=== PATIENT | female | born 1940 | race Caucasian/White ===

== ENCOUNTER 2020-04-15 07:25 | Outpatient (CLI) | payer MEDICARE, SELFPAY ==
[2020-04-15 08:27] LABS: Blood Urea Nitrogen 18 mg/dL (7-17); Calcium 8.5 mg/dL (8.4-10.2); Carbon Dioxide 29 mmol/L (22-30); Chloride 106 mmol/L (98-107); Cholesterol 162 mg/dL (0-200); Estimated Glomerular Filt Rate > 60; Glucose 96 mg/dL (65-105); HDL Direct 63 mg/dL; Potassium 4.2 mmol/L (3.4-5.0); Sodium 139 mmol/L (137-145); Triglycerides 91 mg/dL (<150)
[2020-04-15 08:36] LABS: Hemoglobin A1C 5.7 % (<5.7)
[2020-04-15 08:38] LABS: LDL Cholesterol Direct 66 mg/dL
== END 2020-04-15 07:26 | disposition home or self-care (01) ==
LOC: ANHLAB 07:29
PROVIDERS: PCP Internal Medicine; Visit Provider Internal Medicine
DX: R73.03 Prediabetes (principal); Z79.899 Other long term (current) drug therapy
CPT/HCPCS: 36415; 80048; 80061; 83036; 84443

== ENCOUNTER 2020-04-23 07:22 | Outpatient (CLI) | payer MEDICARE, SELFPAY ==
[2020-04-23 08:44] LABS: Free T4 Free Thyroxine 0.94 ng/mL (0.78-2.19)
== END 2020-04-23 07:23 | disposition home or self-care (01) ==
PROVIDERS: PCP Internal Medicine; Visit Provider Internal Medicine
DX: R94.6 Abnormal results of thyroid function studies (principal)
CPT/HCPCS: 36415; 84439

== ENCOUNTER 2020-06-01 07:50 | Outpatient (CLI) | payer MEDICARE, SELFPAY ==
[2020-06-01 09:22] LABS: Thyroid Stimulating Hormone 0.309 uIU/mL (0.465-4.680)
== END 2020-06-01 07:51 | disposition home or self-care (01) ==
PROVIDERS: PCP Internal Medicine; Visit Provider Internal Medicine
DX: E03.9 Hypothyroidism, unspecified (principal)
CPT/HCPCS: 36415; 84439; 84443

== ENCOUNTER 2020-12-22 07:30 | Outpatient (CLI) | payer MEDICARE, SELFPAY ==
[2020-12-22 09:00] LABS: Free T4 Free Thyroxine 1.41 ng/mL (0.78-2.19)
[2020-12-22 09:12] LABS: Thyroid Stimulating Hormone 0.475 uIU/mL (0.465-4.680)
== END 2020-12-22 07:31 | disposition home or self-care (01) ==
PROVIDERS: PCP Internal Medicine; Visit Provider Internal Medicine
DX: E03.9 Hypothyroidism, unspecified (principal)
CPT/HCPCS: 36415; 84439; 84443

== ENCOUNTER 2021-01-13 09:33 | Outpatient (CLI) | payer MEDICARE, SELFPAY | END 2021-01-13 09:34 | disposition home or self-care (01) | PROVIDERS: PCP Internal Medicine; Visit Provider Internal Medicine | DX: R19.7 Diarrhea, unspecified (principal) | CPT/HCPCS: 87045; 87046; 87177; 87209; 87324; 87427; 89055 ==

== ENCOUNTER 2021-03-16 07:56 | Outpatient (CLI) | payer MEDICARE, SELFPAY ==
--- NOTE | ~2021-03-16 | CT_ITS ---
EXAMINATION: CT abdomen pelvis w con DATE: 03/16/2021 08:34 INDICATION: Change in bowel habits. TECHNIQUE: Computed tomography (CT) of the abdomen and pelvis was performed with 100 mL Omnipaque 350 intravenous contrast. Automated exposure control and iterative reconstruction technique were employe d. The dose-length product was 381.37 mGy-cm. COMPARISON: CT abdomen and pelvis 05/13/2014 FINDINGS: The visualized portions of the lung bases demonstrate mild atelectasis. No pleural effusion . The heart size is normal. No pericardial effusion. There is a right posteromedial diaphragmatic her ed containing fat. The liver, gallbladder, spleen, pancreas, and adrenal glands are normal. There ar e cysts in the kidneys measuring up to 7 mm on the left. There are no dilated loops of bowel. The krish endix is not visualized. There are no pathologically enlarged lymph nodes. There is no free intraperi toneal fluid. There is lumbar dextroscoliosis and severe spondylosis. Again seen are multiple hemangi omas in the spine. IMPRESSION: 1. No etiology for the patient's symptoms. Reviewed, dictated and finalized at location A.
[2021-03-16 08:29] LABS: Estimated Glomerular Filt Rate > 60
== END 2021-03-16 07:57 | disposition home or self-care (01) ==
PROVIDERS: PCP Internal Medicine; Visit Provider Internal Medicine Gastroenterology
DX: R19.4 Change in bowel habit (principal); R19.7 Diarrhea, unspecified
CPT/HCPCS: 74177; Q9967

== ENCOUNTER 2021-04-27 01:30 | Day surgery (SDC) | payer MEDICARE, SELFPAY ==
[2021-04-09 12:19] VITALS: BMI 23.4
[2021-04-27 09:14] VITALS: BP 157/82; PULSE 84; RESP 16; TEMP 36.2; O2SAT 100; BMI 22.7
[2021-04-27] MEDS: LACTATED RINGERS 1,000 ML 150 ML IV CONT (09:24)
--- NOTE | 2021-04-27 09:34 | WPDGICN ---
Assessment and Plan Assessment and plan (1) Change in bowel habit: Code(s): R19.4 - Change in bowel habit Status: Acute Assessment and Plan: Patient with recent diarrhea stools somewhat suspicious for irritable bowel syndrome. This been a change in her bowel habits colonoscopy is recommended. Patient is quite concerned about colon cancer given her prior history of colon polyps. Further recommendations will be given after endoscopy. currently advised fiber supplementation on a daily basis. (2) History of colon polyps: Code(s): Z86.010 - Personal history of colonic polyps Status: Acute Assessment and Plan: Patient is a prior history of colon polyps. For this reason surveillance colonoscopy is recommended every 3-5 years. Further recommendations will be given after current endoscopy. (3) Anxiety with depression: Code(s): F41.8 - Other specified anxiety disorders Status: Acute GI Consult Note Consult date/time: 04/27/21 09:34 HPI: Amanda Darling is a 80 year old female Presents for colonoscopy. Patient has had recent diarrhea. Loose stools. Associated with stress and anxiety. Recently saw Dr. Eddi kaur in the office. A CT scan was performed found to be unremarkable follow-up colonoscopy was advised. Patient denies any weight loss. She has had no bleeding. Her past medical is significant for colon polyps. Most recent colonoscopy was 3 years ago. Family history noncontributory. Patient reports over recent weeks diarrhea is becoming more formed she has less frequent stools and is essentially returned to normal baseline. Fiber supplements have been given with inconsistent results in the past. Review of Systems Review of Systems: All systems reviewed & are unremarkable except as noted in HPI and below PMFSH Past Medical History Medical History (Updated 04/05/21 @ 13:50 by Sidney Shannon MD) Anxiety with depression BMI 25.0-25.9,adult Cough Encounter for Medicare annual wellness exam Encounter for routine adult health examination without abnormal findings Hearing loss Hypothyroidism (acquired) On group home drug therapy Overactive bladder Pre-diabetes Right carotid bruit URI (upper respiratory infection) UTI (urinary tract infection) Surgical History Surgical History (Updated 04/26/21 @ 14:22 by Myles John DO) History of appendectomy History of hysterectomy History of tubal ligation Family History Family History Father Family history of lung cancer Social History Social History Smoking packs per day: 1 Smoking cigarettes per day: 20.0 Years smoked: 20 Smoking pack-years: 20.00 Smoking status: Former smoker Tobacco type: cigarettes Second hand tobacco smoke exposure: No Alcohol intake: current Drinks per week: 3 Living arrangements: alone Spiritual care concerns: No Meds Home Medications and Allergies Home Medications Medication Instructions Recorded Confirmed Type vit C 250 mg-vit E 90 mg-zinc 40 1 tablet PO BID #60 cap 04/28/20 04/27/21 Rx mg-copper 1 [id number] capsule calcium polycarbophil [FiberCon] 2,500 mg PO DAILY 04/09/21 04/27/21 History levothyroxine 100 mcg PO DAILY 04/09/21 04/27/21 History oxybutynin chloride 5 mg PO BID 04/09/21 04/27/21 History paroxetine HCl 30 mg tablet See Rx Instructions .ROUTE 04/27/21 04/27/21 Rx .COMPLEX #90 tablet raloxifene 60 mg tablet See Rx Instructions .ROUTE 04/27/21 04/27/21 Rx .COMPLEX #90 tablet Allergies Allergy/AdvReac Type Severity Reaction Status Date / Time No Known Allergies Allergy Unknown Verified 04/27/21 09:13 Vital Signs Vital Signs - 24 hr 04/27/21 09:14 Temperature 97.2 F L Pulse Rate 84 Respiratory Rate 16 Blood Pressure 157/82 H Pulse Oximetry 100 Exam Narrative: Exam Maikol
--- NOTE | 2021-04-27 10:02 | P.PNAN_ITS ---
Anes - Initial Pre Proc Eval Procedure: Operation Date: 04/27/21 10:30 Proposed Procedures p Colonoscopy - Sidney Shannon MD Date/Time: 04/27/21 10:02 Surgeon: Sidney Shannon MD Pre Op Diagnosis: diarrhea, hx of colon polyps Patient Data Age: 80 Gender: F Height: 1.6 m Weight: 58.2 kg Last Vital Signs Temp 36.2 C L 04/27/21 09:14 Pulse 84 04/27/21 09:14 Resp 16 04/27/21 09:14 BP 157/82 H 04/27/21 09:14 Pulse Ox 100 04/27/21 09:14 Allergies Allergy/AdvReac Type Severity Reaction Status Date / Time No Known Allergies Allergy Unknown Verified 04/27/21 09:13 Home Medications Medication Instructions Recorded Confirmed Type vit C 250 mg-vit E 90 mg-zinc 40 1 tablet PO BID #60 cap 04/28/20 04/27/21 Rx mg-copper 1 [id number] capsule calcium polycarbophil [FiberCon] 2,500 mg PO DAILY 04/09/21 04/27/21 History levothyroxine 100 mcg PO DAILY 04/09/21 04/27/21 History oxybutynin chloride 5 mg PO BID 04/09/21 04/27/21 History paroxetine HCl 30 mg tablet See Rx Instructions .ROUTE 04/27/21 04/27/21 Rx .COMPLEX #90 tablet raloxifene 60 mg tablet See Rx Instructions .ROUTE 04/27/21 04/27/21 Rx .COMPLEX #90 tablet Patient hx anesthesia problems: none Family hx anesthesia problems: none PMFSH Past Medical History Medical History (Updated 04/05/21 @ 13:50 by Sidney Shannon MD) Anxiety with depression BMI 25.0-25.9,adult Cough Encounter for Medicare annual wellness exam Encounter for routine adult health examination without abnormal findings Hearing loss Hypothyroidism (acquired) On [place] agent drug therapy Overactive bladder Pre-diabetes Right carotid bruit URI (upper respiratory infection) UTI (urinary tract infection) Surgical History Surgical History (Updated 04/26/21 @ 14:22 by Myles John DO) History of appendectomy History of hysterectomy History of tubal ligation Family History Family History Father Family history of lung cancer Social History Social History (Updated 04/27/21 @ 10:03 by Myles John DO) Smoking packs per day: 1 Smoking cigarettes per day: 20.0 Years smoked: 40 Smoking pack-years: 40.00 Smoking status: Former smoker Tobacco type: cigarettes Second hand tobacco smoke exposure: No Smoking end date: 10/16/99 Alcohol intake: current Alcohol use details: 2 drinks/day most days Living arrangements: alone Spiritual care concerns: No Anes - Eval Final PreProcedure Day of Procedure 04/27/21 10:02 Patient weight: normal Heart: regular rate and rhythm Lungs: clear to auscultation and normal air movement Airway: Mallampati scale class II Neurological: alert and oriented Last oral intake: >/= 8 hours ASA classification: III Emergent: no Anesthetic plan: proceed Anesthesia type and monitoring: general GIVS and standard monitoring Informed Consent: The patient's anesthetic plan and its attendant risks and benefits were discussed with the patient/family/POA. Questions were solicited and answers provided to the satisfaction of the patient/family/POA.
[2021-04-27 11:16] VITALS: BP 134/74; PULSE 66; RESP 17; O2SAT 99
[2021-04-27 11:26] VITALS: BP 146/78; PULSE 59; RESP 16; O2SAT 100
[2021-04-27 11:36] VITALS: BP 158/80; PULSE 63; RESP 20; O2SAT 99
== END 2021-04-27 11:42 | disposition home or self-care (01) ==
PROVIDERS: PCP Internal Medicine; Visit Provider Internal Medicine Gastroenterology
PROC: 0DJD8ZZ Inspection of Lower Intestinal Tract, Via Natural or Artificial Opening Endoscopic (ICD-10-PCS; CPT 45330; principal; 2021-04-27 10:30)
DX: Z12.11 Encounter for screening for malignant neoplasm of colon (principal); K63.5 Polyp of colon; R19.7 Diarrhea, unspecified; E03.9 Hypothyroidism, unspecified; F41.8 Other specified anxiety disorders; N32.81 Overactive bladder; R73.03 Prediabetes; Z87.891 Personal history of nicotine dependence; R09.89 Other specified symptoms and signs involving the circulatory and respiratory systems
CPT/HCPCS: 45385; 88305; J2704; J7120

== ENCOUNTER 2021-05-12 08:10 | Outpatient (CLI) | payer MEDICARE, SELFPAY ==
--- NOTE | ~2021-05-12 | XR_ITS ---
BARIUM ENEMA-AIR CONTRAST INDICATION: Gastroenteritis. Colitis. TECHNIQUE: Examination of the colon utilizing air-contrast barium enema technique. COMPARISON: CT dated 03/16/2021 FINDINGS: The entire colon was filled, distending normally. Colon is mildly redundant. No extrinsic m ass effect is noted. The haustral pattern appears normal. There is no evidence of polyp, stricture, extravasation, obstruction or persistent mucosal abnormality. There are a few scattered colonic dive rticula. There is dextroscoliosis with moderate lumbar spondylosis. IMPRESSION: 1: Colonic diverticulosis. Reviewed, dictated and finalized at location A. IMPRESSION: 1: Colonic diverticulosis.
== END 2021-05-12 08:11 | disposition home or self-care (01) ==
LOC: ANHIMG 08:11
PROVIDERS: PCP Internal Medicine; Visit Provider Internal Medicine Gastroenterology
DX: K52.9 Noninfective gastroenteritis and colitis, unspecified (principal); K57.30 Diverticulosis of large intestine without perforation or abscess without bleeding; M47.816 Spondylosis without myelopathy or radiculopathy, lumbar region
CPT/HCPCS: 74280

== ENCOUNTER 2021-07-01 11:08 | Outpatient (CLI) | payer MEDICARE, SELFPAY ==
[2021-07-01 11:44] LABS: Basophils Absolute Auto 0.1 K/mm3 (0.0-0.1); Eosinophils Absolute Auto 0.4 K/mm3 (0-0.3); Eosinophils Percent Auto 6.2 % (0-4.4); Hematocrit 41.9 % (37.0-47.0); Hemoglobin 13.6 g/dL (12.0-15.0); Immature Granulocyte Absolute 0.02 K/mm3 (0.00-0.031); Immature Granulocyte Percent A 0.3 % (0-0.5); Lymphocytes Absolute Auto 1.84 K/mm3 (0.9-3.2); Lymphocytes Percent Auto 27.3 % (18.3-44.2); Mean Corpuscular HGB Conc 32.5 g/dl (32-36); Mean Corpuscular Hemoglobin 31.1 pg (26-34); Mean Corpuscular Volume 95.9 fl (80-100); Mean Platelet Volume 9.8 fl (7.4-10.4); Monocytes Absolute Auto 0.5 K/mm3 (0.1-0.6); Monocytes Percent Auto 7.1 % (2.6-8.5); Neutrophils Absolute Auto 3.9 K/mm3 (1.3-6.7); Neutrophils Percent Auto 58.1 % (45.5-73.1); Platelet Count Result 313 k/mm3 (150-375); Red Blood Count 4.37 M/mm3 (4.2-5.4); Red Cell Distribution Width 13.7 % (11.5-14.5); White Blood Count 6.7 K/mm3 (4.5-10.0)
[2021-07-01 11:54] LABS: Alanine Aminotransferase 23 U/L (4-35); Albumin Level 4.2 g/dL (3.5-5.1); Alkaline Phosphatase 60 U/L (38-126); Anion Gap 8 mmol/L (8-16); Aspartate Amino Transferase 30 U/L (14-36); Bilirubin,Total 0.9 mg/dL (0.2-1.3); Blood Urea Nitrogen 16 mg/dL (7-17); Calcium 9.2 mg/dL (8.4-10.2); Carbon Dioxide 29 mmol/L (22-30); Chloride 105 mmol/L (98-107); Cholesterol 181 mg/dL (0-200); Estimated Glomerular Filt Rate > 60; Glucose 95 mg/dL (65-110); HDL Direct 77 mg/dL; Potassium 4.2 mmol/L (3.4-5.0); Sodium 142 mmol/L (137-145); Triglycerides 73 mg/dL (<150)
[2021-07-01 12:05] LABS: LDL Cholesterol Direct 70 mg/dL
[2021-07-01 12:25] LABS: Hemoglobin A1C 5.6 % (<5.7)
[2021-07-05 11:48] LABS: Vitamin D 1,25 (OH)2 Total 27 pg/mL (18-72); Vitamin D2 1,25 (OH)2 <8 pg/mL; Vitamin D3 1,25 (OH)2 27 pg/mL
== END 2021-07-01 11:09 | disposition home or self-care (01) ==
LOC: ANHLAB 11:10
PROVIDERS: PCP Internal Medicine; Visit Provider Internal Medicine
DX: E55.9 Vitamin D deficiency, unspecified (principal); Z51.81 Encounter for therapeutic drug level monitoring; Z79.899 Other long term (current) drug therapy; R73.03 Prediabetes
CPT/HCPCS: 36415; 80053; 80061; 82652; 83036; 85025

== ENCOUNTER 2022-01-05 10:34 | Outpatient (CLI) | payer MEDICARE, SELFPAY ==
[2022-01-05 11:28] LABS: Add Urine Microscopic? YES; Appearance Urine Cloudy (Clear); Bilirubin Urine Negative (Negative); Color Urine Yellow (Yellow); Glucose Urine UA Negative (Negative); Ketones Urine Negative (Negative); Leukocyte Esterase Ur 2+ LEU/UL (Negative); Mucus Urine Rare /lpf; Nitrate Urine Negative (Negative); Protein Urine Negative (Negative); Specific Grav Ur 1.017 (1.001-1.035); Squamous Epithelial Cell Urine Rare /hpf (Few); Urobilinogen Urine Negative mg/dL (<2.0); WBC Urine 51-75 /hpf
[2022-01-05 11:30] LABS: Blood Urine Negative (Negative)
[2022-01-05 11:35] LABS: Anion Gap 4 mmol/L (8-16); Blood Urea Nitrogen 25 mg/dL (7-17); Calcium 8.7 mg/dL (8.4-10.2); Carbon Dioxide 30 mmol/L (22-30); Chloride 107 mmol/L (98-107); Cholesterol 185 mg/dL (0-200); Estimated Glomerular Filt Rate > 60; Glucose 73 mg/dL (65-110); HDL Direct 68 mg/dL; Hemoglobin A1C 5.3 % (<5.7); Potassium 4.4 mmol/L (3.4-5.0); Sodium 141 mmol/L (137-145); Triglycerides 110 mg/dL (<150)
[2022-01-05 11:45] LABS: LDL Cholesterol Direct 70 mg/dL
[2022-01-05 11:50] LABS: Free T4 Free Thyroxine 1.43 ng/mL (0.78-2.19)
== END 2022-01-05 10:35 | disposition home or self-care (01) ==
LOC: ANHLAB 10:38
PROVIDERS: PCP Internal Medicine; Visit Provider Internal Medicine
DX: Z51.81 Encounter for therapeutic drug level monitoring (principal); Z79.899 Other long term (current) drug therapy; E03.9 Hypothyroidism, unspecified; R73.03 Prediabetes
CPT/HCPCS: 36415; 80048; 80061; 81001; 83036; 84439; 84443; 87086; 87088

== ENCOUNTER 2022-07-06 07:05 | Outpatient (CLI) | payer MEDICARE, SELFPAY ==
[2022-07-06 07:51] LABS: Alanine Aminotransferase 26 U/L (6-35); Alkaline Phosphatase 68 U/L (38-126); Anion Gap 9 mmol/L (8-16); Aspartate Amino Transferase 31 U/L (14-36); Bilirubin,Total 0.8 mg/dL (0.2-1.3); Blood Urea Nitrogen 16 mg/dL (7-17); Calcium 8.8 mg/dL (8.4-10.2); Carbon Dioxide 25 mmol/L (22-30); Chloride 107 mmol/L (98-107); Cholesterol 179 mg/dL (0-200); Estimated Glomerular Filt Rate > 60; Glucose 100 mg/dL (65-110); HDL Direct 77 mg/dL; Potassium 4.3 mmol/L (3.4-5.0); Sodium 141 mmol/L (137-145); Triglycerides 84 mg/dL (<150)
[2022-07-06 07:53] LABS: Hemoglobin A1C 5.4 % (<5.7)
[2022-07-06 08:01] LABS: LDL Cholesterol Direct 73 mg/dL
[2022-07-06 09:42] LABS: Free T4 Free Thyroxine 1.66 ng/mL (0.78-2.19); Vitamin D 25 Hydroxy 49.6 ng/mL
== END 2022-07-06 07:06 | disposition home or self-care (01) ==
PROVIDERS: PCP Internal Medicine; Visit Provider Internal Medicine
DX: R73.02 Impaired glucose tolerance (oral) (principal); E03.9 Hypothyroidism, unspecified; Z51.81 Encounter for therapeutic drug level monitoring; Z79.899 Other long term (current) drug therapy; E55.9 Vitamin D deficiency, unspecified
CPT/HCPCS: 36415; 80053; 80061; 82306; 83036; 84439; 84443

== ENCOUNTER 2023-02-01 06:49 | Outpatient (CLI) | payer MEDICARE, SELFPAY ==
[2023-02-01 07:31] LABS: Basophils Absolute Auto 0.1 K/mm3 (0.0-0.1); Basophils Percent Auto 1.2 % (0.2-1.2); Eosinophils Absolute Auto 0.3 K/mm3 (0-0.3); Eosinophils Percent Auto 5.6 % (0-4.4); Hemoglobin 12.8 g/dL (12.0-15.0); Immature Granulocyte Absolute 0.01 K/mm3 (0.00-0.031); Immature Granulocyte Percent A 0.2 % (0-0.5); Lymphocytes Absolute Auto 1.75 K/mm3 (0.9-3.2); Lymphocytes Percent Auto 33.6 % (18.3-44.2); Mean Corpuscular Hemoglobin 30.6 pg (26-34); Mean Corpuscular Volume 95.7 fl (80-100); Mean Platelet Volume 9.5 fl (7.4-10.4); Monocytes Absolute Auto 0.6 K/mm3 (0.1-0.6); Monocytes Percent Auto 10.6 % (2.6-8.5); Neutrophils Absolute Auto 2.6 K/mm3 (1.3-6.7); Neutrophils Percent Auto 48.8 % (45.5-73.1); Platelet Count Result 309 k/mm3 (150-375); Red Blood Count 4.18 M/mm3 (4.2-5.4); Red Cell Distribution Width 13.8 % (11.5-14.5); White Blood Count 5.2 K/mm3 (4.5-10.0)
[2023-02-01 07:39] LABS: Alanine Aminotransferase 24 U/L (6-35); Alkaline Phosphatase 71 U/L (38-126); Anion Gap 5 mmol/L (8-16); Aspartate Amino Transferase 29 U/L (14-36); Bilirubin,Total 0.7 mg/dL (0.2-1.3); Blood Urea Nitrogen 18 mg/dL (7-17); Calcium 8.4 mg/dL (8.4-10.2); Carbon Dioxide 28 mmol/L (22-30); Chloride 107 mmol/L (98-107); Cholesterol 165 mg/dL (0-200); Estimated Glomerular Filt Rate > 60; Glucose 94 mg/dL (65-110); HDL Direct 65 mg/dL; Potassium 4.1 mmol/L (3.4-5.0); Sodium 140 mmol/L (137-145); Triglycerides 89 mg/dL (<150)
[2023-02-01 07:51] LABS: LDL Cholesterol Direct 65 mg/dL
[2023-02-01 07:53] LABS: Hemoglobin A1C 5.5 % (<5.7)
[2023-02-01 08:27] LABS: Free T4 Free Thyroxine 1.62 ng/mL (0.78-2.19); Vitamin D 25 Hydroxy 52.1 ng/mL
== END 2023-02-01 06:50 | disposition home or self-care (01) ==
LOC: ANHLAB 06:51
PROVIDERS: PCP Internal Medicine; Visit Provider Internal Medicine
DX: R73.03 Prediabetes (principal); Z51.81 Encounter for therapeutic drug level monitoring; Z79.899 Other long term (current) drug therapy; E03.9 Hypothyroidism, unspecified; E78.2 Mixed hyperlipidemia; E55.9 Vitamin D deficiency, unspecified
CPT/HCPCS: 36415; 80053; 80061; 82306; 83036; 84439; 84443; 85025

== ENCOUNTER 2023-07-27 10:16 | Outpatient (CLI) | payer MEDICARE, SELFPAY ==
--- NOTE | ~2023-07-27 | XR_ITS ---
Right Knee Technique: AP, lateral, and sunrise views were obtained. Clinical History: Pain Findings: No fracture or dislocation is seen. Osseous alignment is anatomic. Mild tricompartmental de generative change noted. Soft tissues are unremarkable. No joint effusion is seen. Impression: Mild tricompartmental degenerative change. Reviewed, dictated and finalized at [facility]. Impression: Mild tricompartmental degenerative change.
--- NOTE | ~2023-07-27 | XR_ITS ---
AP and lateral views of the right hip Clinical history: Pain Findings: No acute fracture or dislocation is seen. Osseous alignment is anatomic. The right hip join t and right SI joint are preserved. Soft tissues are unremarkable. Impression: No significant abnormality is seen. Reviewed, dictated and finalized at location . Impression: No significant abnormality is seen.
--- NOTE | ~2023-07-27 | XR_ITS ---
Right ankle Technique: AP, oblique, and lateral views were obtained. Clinical History: Pain Findings: No acute fracture or dislocation is seen. Osseous alignment is anatomic. Ankle mortise and other visualized joint spaces are preserved. Small plantar calcaneal spur present. Soft tissues are o therwise unremarkable. Impression: Small plantar calcaneal spur, otherwise unremarkable exam. Reviewed, dictated and finalized at location . Impression: Small plantar calcaneal spur, otherwise unremarkable exam.
--- NOTE | ~2023-07-27 | US_ITS ---
EXAMINATION: US venous doppler LE RT DATE: 07/27/2023 11:07 INDICATION: Right lower limb pain. TECHNIQUE: Grayscale ultrasound images without and with compression and Doppler ultrasound images of the right lower extremity veins were obtained. COMPARISON: None. FINDINGS: The visualized portions of right common femoral vein, profunda (deep) femoral vein, femoral vein, pop liteal vein, peroneal veins, posterior tibial veins, and greater saphenous vein outflow are patent. IMPRESSION: 1. No deep venous thrombosis. Reviewed, dictated and finalized at location A.
--- NOTE | ~2023-07-27 | XR_ITS ---
AP and oblique views of the SI joints CLINICAL HISTORY: Pain FINDINGS: Bilateral SI joints are unremarkable. No erosive or sclerotic change evident. No degenerati ve change evident. SI joints are unremarkable. No significant soft tissue abnormality seen. IMPRESSION: No significant abnormality seen. Reviewed, dictated and finalized at [facility].
[2023-07-27 10:57] LABS: Basophils Absolute Auto 0.1 K/mm3 (0.0-0.1); Basophils Percent Auto 1.2 % (0.2-1.2); Eosinophils Absolute Auto 0.3 K/mm3 (0-0.3); Eosinophils Percent Auto 4.7 % (0-4.4); Immature Granulocyte Absolute 0.02 K/mm3 (0.00-0.031); Immature Granulocyte Percent A 0.4 % (0-0.5); Lymphocytes Absolute Auto 1.62 K/mm3 (0.9-3.2); Lymphocytes Percent Auto 28.5 % (18.3-44.2); Mean Corpuscular HGB Conc 32.5 g/dl (32-36); Mean Corpuscular Hemoglobin 31.6 pg (26-34); Mean Corpuscular Volume 97.3 fl (80-100); Monocytes Absolute Auto 0.5 K/mm3 (0.1-0.6); Monocytes Percent Auto 8.8 % (2.6-8.5); Neutrophils Absolute Auto 3.2 K/mm3 (1.3-6.7); Neutrophils Percent Auto 56.4 % (45.5-73.1); Platelet Count Result 256 k/mm3 (150-375); Red Blood Count 4.11 M/mm3 (4.2-5.4); Red Cell Distribution Width 13.8 % (11.5-14.5); White Blood Count 5.7 K/mm3 (4.5-10.0)
[2023-07-27 11:11] LABS: INR 0.9; Prothrombin Time 12.7 Seconds (11.1-14.7)
[2023-07-27 11:31] LABS: D Dimer 0.72 ug/mL (<0.48)
== END 2023-07-27 10:17 | disposition home or self-care (01) ==
LOC: ANHIMG 10:18
PROVIDERS: PCP Internal Medicine; Visit Provider Internal Medicine
DX: M79.604 Pain in right leg (principal); M79.89 Other specified soft tissue disorders; M25.571 Pain in right ankle and joints of right foot; M25.551 Pain in right hip; M25.561 Pain in right knee; M77.31 Calcaneal spur, right foot
CPT/HCPCS: 36415; 72202; 73502; 73562; 73610; 85025; 85380; 85610; 93971

== ENCOUNTER 2023-09-20 08:23 | Outpatient (CLI) | payer MEDICARE, SELFPAY ==
[2023-09-20 09:59] LABS: Alanine Aminotransferase 29 U/L (6-35); Albumin Level 3.9 g/dL (3.5-5.1); Alkaline Phosphatase 59 U/L (38-126); Anion Gap 6 mmol/L (8-16); Aspartate Amino Transferase 36 U/L (14-36); Bilirubin,Total 0.7 mg/dL (0.2-1.3); Blood Urea Nitrogen 18 mg/dL (7-17); Calcium 9.3 mg/dL (8.4-10.2); Carbon Dioxide 30 mmol/L (22-30); Chloride 105 mmol/L (98-107); Cholesterol 168 mg/dL (0-200); Estimated Glomerular Filt Rate > 60; Glucose 92 mg/dL (65-110); HDL Direct 66 mg/dL; Potassium 4.4 mmol/L (3.4-5.0); Sodium 141 mmol/L (137-145); Triglycerides 81 mg/dL (<150)
[2023-09-20 10:08] LABS: Hemoglobin A1C 5.4 % (<5.7)
[2023-09-20 10:10] LABS: LDL Cholesterol Direct 74 mg/dL
[2023-09-20 10:42] LABS: Free T4 Free Thyroxine 1.82 ng/mL (0.78-2.19)
== END 2023-09-20 08:24 | disposition home or self-care (01) ==
LOC: ANHLAB 08:24
PROVIDERS: PCP Internal Medicine; Visit Provider Internal Medicine
DX: R73.03 Prediabetes (principal); E78.2 Mixed hyperlipidemia; E03.9 Hypothyroidism, unspecified; Z79.899 Other long term (current) drug therapy
CPT/HCPCS: 36415; 80053; 80061; 83036; 84439; 84443

== ENCOUNTER 2023-09-27 10:08 | Outpatient (CLI) | payer MEDICARE, SELFPAY ==
--- NOTE | ~2023-09-27 | XR_ITS ---
Right Knee Technique: AP, lateral, and sunrise views were obtained. Clinical History: Pain Findings: No fracture or dislocation is seen. There is mild tricompartmental degenerative spurring. S oft tissues are unremarkable. No joint effusion is seen. Impression: Mild tricompartmental degenerative spurring. Reviewed, dictated and finalized at location M[facility] Impression: Mild tricompartmental degenerative spurring.
== END 2023-09-27 10:09 | disposition home or self-care (01) ==
PROVIDERS: PCP Internal Medicine; Visit Provider Internal Medicine
DX: M25.469 Effusion, unspecified knee (principal); M25.561 Pain in right knee; M79.604 Pain in right leg; M77.8 Other enthesopathies, not elsewhere classified
CPT/HCPCS: 73564

== ENCOUNTER 2024-01-17 11:31 | Outpatient (CLI) | payer MEDICARE, SELFPAY ==
[2024-01-17 12:06] LABS: Basophils Absolute Auto 0.1 K/mm3 (0.0-0.1); Basophils Percent Auto 1.1 % (0.2-1.2); Eosinophils Absolute Auto 0.4 K/mm3 (0-0.3); Eosinophils Percent Auto 4.9 % (0-4.4); Hematocrit 40.5 % (37.0-47.0); Hemoglobin 12.9 g/dL (12.0-15.0); Immature Granulocyte Absolute 0.01 K/mm3 (0.00-0.031); Immature Granulocyte Percent A 0.1 % (0-0.5); Lymphocytes Absolute Auto 2.29 K/mm3 (0.9-3.2); Lymphocytes Percent Auto 30.9 % (18.3-44.2); Mean Corpuscular HGB Conc 31.9 g/dl (32-36); Mean Corpuscular Hemoglobin 31.6 pg (26-34); Mean Corpuscular Volume 99.3 fl (80-100); Monocytes Absolute Auto 0.7 K/mm3 (0.1-0.6); Monocytes Percent Auto 9.4 % (2.6-8.5); Neutrophils Percent Auto 53.6 % (45.5-73.1); Platelet Count Result 302 k/mm3 (150-375); Red Blood Count 4.08 M/mm3 (4.2-5.4); Red Cell Distribution Width 13.2 % (11.5-14.5); White Blood Count 7.4 K/mm3 (4.5-10.0)
[2024-01-17 12:11] LABS: Appearance Urine Clear (Clear); Bacteria Urine None Seen /hpf; Bilirubin Urine Negative (Negative); Blood Urine Negative (Negative); Color Urine Yellow (Yellow); Glucose Urine UA Negative (Negative); Ketones Urine Negative (Negative); Leukocyte Esterase Ur Trace LEU/UL (Negative); Nitrate Urine Negative (Negative); Non Pathogenic Casts 0-2; Protein Urine Negative (Negative); RBC Urine 0-2 /hpf (0-2); Specific Grav Ur 1.017 (1.001-1.035); Squamous Epithelial Cell Urine None Seen /hpf (Few); Urobilinogen Urine 0.2 mg/dL (<2.0); WBC Urine 0-5 /hpf (0-3); pH Urine 5.5 (5.0-9.0)
[2024-01-17 12:16] LABS: Anion Gap 4 mmol/L (4-12); Blood Urea Nitrogen 22 mg/dL (7-17); Calcium 9.3 mg/dL (8.4-10.2); Carbon Dioxide 29 mmol/L (22-30); Chloride 106 mmol/L (98-107); Estimated Glomerular Filt Rate > 60; Glucose 91 mg/dL (65-110); Potassium 3.9 mmol/L (3.4-5.0); Sodium 139 mmol/L (137-145)
[2024-01-17 12:41] LABS: Add Urine Microscopic? YES
== END 2024-01-17 11:32 | disposition home or self-care (01) ==
PROVIDERS: PCP Internal Medicine; Visit Provider Orthopaedic Surgery
DX: R53.83 Other fatigue (principal); R09.89 Other specified symptoms and signs involving the circulatory and respiratory systems; M17.11 Unilateral primary osteoarthritis, right knee; E78.2 Mixed hyperlipidemia; E55.9 Vitamin D deficiency, unspecified; E03.9 Hypothyroidism, unspecified
CPT/HCPCS: 36415; 80048; 81001; 85025

== ENCOUNTER 2024-02-01 07:59 | Outpatient (CLI) | payer MEDICARE, SELFPAY ==
--- NOTE | 2024-02-01 09:20 | ECG_ITS ---
SEE SCANNED COPY FOR CONFIRMED REPORT MTDD
[2024-02-01 09:55] LABS: Albumin Level 4.4 g/dL (3.5-5.1)
[2024-02-01 10:00] LABS: Hemoglobin A1C 5.4 % (<5.7)
[2024-02-01 10:01] LABS: Urine Cotinine NEGATIVE
[2024-02-01 10:04] LABS: Prothrombin Time 13.1 Seconds (11.1-14.7)
[2024-02-01 10:17] LABS: Partial Thromboplastin Time 25.2 Seconds (22.3-36.8)
[2024-02-01 11:06] LABS: MRSA (PCR) NOT DETECTED (NOT DETECTE)
== END 2024-02-01 08:00 | disposition home or self-care (01) ==
LOC: ANHSURGERY 08:03
PROVIDERS: PCP Internal Medicine; Visit Provider Orthopaedic Surgery
DX: Z01.818 Encounter for other preprocedural examination (principal); M17.11 Unilateral primary osteoarthritis, right knee
CPT/HCPCS: 80307; 82040; 83036; 85610; 85730; 86850; 86900; 86901; 87641; 93005

== ENCOUNTER 2024-02-13 00:32 | Day surgery (SDC) | payer MEDICARE, SELFPAY ==
[2024-02-01 07:47] VITALS: BP 150/80; PULSE 70; RESP 16; TEMP 37.2; O2SAT 100; BMI 22.8
--- NOTE | 2024-02-01 07:48 | PC.NURSE ---
PRE-OP INSTRUCTIONS, PLEASE READ CAREFULLY Report to the Outpatient Waiting Room, entrance under the green pavilion located off [facility], at time _0830_ on date _02/13/24_. Planned Procedure Time: _1030_. PACK A SMALL OVERNIGHT BAG AND LEAVE IT IN THE CAR ALONG WITH YOUR WALKER Time changes happen often and if your time is changed the preop area will call you the afternoon before. - You and your visitor will be asked to self-screen and do not enter if you have any COVID symptoms. - A mask is optional within the hospital at this time. -VISITING HOURS 8AM-8PM Patients may have clear liquids (water, carbonated beverages, clear teas, apple juice) until 3 hours prior to surgery (0730 AM) with a maximum of 20 ounces. - No food from midnight until time of surgery Take the following medications with a SIP of water the morning of surgery: _LEVOTHYROXINE, PAROXETINE, & TRAMADOL IF NEEDED_ DO NOT STOP ANY OF YOUR OTHER PRESCRIPTION MEDICATIONS PRIOR TO SURGERY ?EXCEPT THE FOLLOWING Medications to discontinue per ANESTHESIA - _VITAMINS/SUPPLEMENTS 3 DAYS PRIOR TO SURGERY, Date to take last dose 02/09/24_ Please no make-up, nail kazakh, hairspray, perfume, deodorant, or body powder the day of surgery. No jewelry (including any body piercings) or valuables the day of surgery, leave them at home. Please take a shower or bath the night before, or the morning of, surgery with an antibacterial soap. Wear comfortable, loose fitting clothing. - Jewelry must be removed prior to entering the operating room. Rings and piercings that are not removed may be cut off. - The hospital will not accept responsibility for valuables. - Please leave all valuables, including medications, at home the day of surgery. If you are going home after surgery, a licensed route sales delivery drivers supervisor must drive you home. - NO public transportation without another adult if you receive anesthesia. - We recommend that an adult stay with you for 24 hours following discharge. - We also recommend that you do not drive, make important decision, drink alcoholic beverages, or take any drugs that were not prescribed by your health care provider for at least 24 hours after your discharge time. Follow any additional instructions given to you from your surgeon. If you or anyone in your household have experienced Covid symptoms in the past week, please notify your surgeon or the nurse liaison at the phone number below for possible testing. Instructions given to _PATIENT_and asked if any additional questions and then verbalized understanding. Patient advised to call surgeon office or pre surgery nurse liaison [phone] if any additional questions.
[2024-02-13] VITALS (11 sets, daily range): BP systolic 117–176; BP diastolic 52–89; PULSE 71–91; RESP 12–18; TEMP 36.2–36.6; O2SAT 93–100
--- NOTE | ~2024-02-13 | XR_ITS ---
EXAMINATION: [id number] DATE: 02/13/2024 14:10 CDT INDICATION: Right total knee arthroplasty TECHNIQUE: 2 views right knee FINDINGS: There is a right total knee arthroplasty in expected position. Subcutaneous gas with fluid and air in the joint and overlying skin yovani are consistent with recent surgery. No evidence of p eriprosthetic fracture. IMPRESSION: 1. Recent right total knee arthroplasty. Reviewed, dictated and finalized at location B.
--- NOTE | 2024-02-13 07:11 | WPDHPUPDATE1 ---
History and Physical Update Update Date/Time: 02/13/24 07:11 History and Physical has been reviewed, including an updated exam of the patient. There are NO changes in the patient's condition. Risks, benefits, and alternatives have been discussed and questions answered. Patient agrees to proceed with procedure.
--- NOTE | 2024-02-13 09:55 | WPDANESEPPF ---
Anes - Initial Pre Proc Eval Procedure: Operation Date: 02/13/24 11:00 Proposed Procedures p Right Total Knee Arthroplasty - Malcolm Antunez MD Date/Time: 02/13/24 09:55 Surgeon: Malcolm Antunez MD Pre Op Diagnosis: Rt Knee DJD Patient Data Age: 83 Gender: F Height: 1.6 m Weight: 58.4 kg Last Vital Signs Temp 37.2 C 02/01/24 07:47 Pulse 70 02/01/24 07:47 Resp 16 02/01/24 07:47 BP 150/80 H 02/01/24 07:47 Pulse Ox 100 02/01/24 07:47 O2 Del Method Room Air 02/01/24 07:47 Allergies Allergy/AdvReac Type Severity Reaction Status Date / Time No Known Allergies Allergy Unknown Verified 02/01/24 08:17 Home Medications Medication Instructions Recorded Confirmed Type vit C 250 mg-vit E 90 mg-zinc 40 1 tablet PO BID #60 caps 04/28/20 02/01/24 Rx mg-copper 1 [id number] capsule (PreserVision AREDS-2) cholecalciferol (vitamin D3) 50 50 mcg PO DAILY 07/05/21 02/01/24 History mcg (2,000 unit) capsule oxybutynin chloride 5 mg tablet See Rx Instructions .Route 09/27/23 02/01/24 Rx .COMPLEX #200 tabs paroxetine HCl 30 mg tablet See Rx Instructions .Route 09/27/23 02/01/24 Rx .COMPLEX #90 tabs levothyroxine 100 mcg tablet See Rx Instructions .Route 10/02/23 02/01/24 Rx .COMPLEX #100 tabs raloxifene 60 mg tablet See Rx Instructions .Route 10/18/23 02/01/24 Rx .COMPLEX #90 tabs docusate sodium 100 mg capsule 300 mg PO QHS 01/29/24 02/01/24 History tramadol 50 mg tablet 50 mg PO Q6H PRN pain #40 tabs 02/05/24 Rx chlorhexidine gluconate 4 % 1 applic topical ONCE #237 mL 02/06/24 Rx topical liquid (Hibiclens) Patient hx anesthesia problems: none Family hx anesthesia problems: none Results Review: All pre-operative results and documents have been reviewed as part of the pre-operative evaluation. [facility] Past Medical History Medical History Anxiety with depression BMI 22.0-22.9, adult BMI 23.0-23.9, adult BMI 24.0-24.9, adult BMI 25.0-25.9,adult Borderline abnormal thyroid function test Change in bowel habit Cough Encounter for Medicare annual wellness exam Encounter for routine adult health examination without abnormal findings Hearing loss Hypothyroidism (acquired) Microscopic hematuria Need for COVID-19 vaccine On [facility] drug therapy Other fatigue Other secondary cataract, bilateral Overactive bladder Pre-diabetes Right carotid bruit Right leg pain URI (upper respiratory infection) UTI (urinary tract infection) Vitamin D deficiency Surgical History Surgical History History of appendectomy History of hysterectomy History of tubal ligation Family History Family History Father Family history of lung cancer Unknown Asthma Bladder cancer Social History Social History Social History: caffeine use Smoking packs per day: 1 Smoking cigarettes per day: 20.0 Years smoked: 40 Smoking pack-years: 40.00 Smoking status: Former smoker Tobacco type: cigarettes Second hand tobacco smoke exposure: No Smoking end date: 10/16/99 Alcohol intake: current Alcohol use details: 2-3/WEEK - WINE Substance use: never Substance use type: does not use Lack of Transportation: No Lack of Food: Never True Current Housing: I Have Housing Concerned About Future Housing: No Difficulty Paying Gas/Electric Bills: No Difficulty Paying for Meds: No Currently Unemployed: No Education: High School Diploma/GED Difficulty w/ Childcare or Family Care: No Living arrangements: alone Occupation/Education: retired Gender identity (if verbalized by the patient): Female Spiritual care concerns: No Anes - Eval Final PreProcedure Day of Procedure 02/13/24 09:55 Patient weight: normal Heart
[2024-02-13] MEDS: LACTATED RINGERS 1,000 ML 30 ML IV CONT ×2 (10:30→13:41)
[2024-02-13] MEDS: TRANEXAMIC ACID 1,000MG/ISO100 1,000 MG/100 ML BAG 200 MG IVPB (10:30)
[2024-02-13] MEDS: ACETAMINOPHEN 500 MG TABLET 1000 MG PO (10:30)
[2024-02-13] MEDS: ceFAZolin 2 GM/D5W 50 ML 2 GM/50 ML BAG IVPB ×2 (11:21→18:56)
[2024-02-13] MEDS: TRANEXAMIC ACID 1,000 MG/10 ML AMPUL 1000 MG IV PUSH (12:44)
[2024-02-13] MEDS: SODIUM CHLORIDE 0.9% IV 37.7 ML, MORPHINE SULFATE INJ (*CRX) 2 MG, ROPivacaine HCL 1% 2... INFILTRATE (12:49)
[2024-02-13] MEDS: BUPivacaine HCL 0.5% 10 ML AMP 20 ML INFILTRATE (12:50)
--- NOTE | 2024-02-13 13:30 | W.PM.PROC2 ---
Procedure Note - Detailed Date of Procedure 02/13/24 Pre-op Diagnosis Rt Knee DJD Post-op Diagnosis Same Procedure Performed R TKA Surgeon Malcolm Antunez MD Anesthesia General Description of Procedure THE RIGHT KNEE WAS PREPPED AND DRAPED IN THE STERILE FASHION. THERE WAS A 10 DEGREE FLEXION CONTRACTURE. A MIDLINE SKIN INCISION WAS MADE. A MEDIAL PARAPATELLAR ARTHROTOMY WAS MADE. THE PATELLA WAS EVERTED. THERE WAS TRICOMPARTMENT DJD. THERE WAS MINIMAL PATELLA DJD. AN INTRAMEDULLARY ALBERT WAS PLACED IN THE FEMUR. A DISTAL FEMORAL CUT WAS MADE IN 5 DEGREES OF VALGUS REMOVING APPROXIMATELY 9 MM OF BONE FROM THE DISTAL FEMUR. THE FEMUR WAS SIZED TO 62.5. A 62.5 FEMORAL CUTTING BLOCK WAS PLACED IN 3 DEGREES OF EXTERNAL ROTATION AND IN ALIGNMENT WITH HOWARD'S LINE AND THE TRANSEPICONDYLAR AXIS. ANTERIOR POSTERIOR AND CHAMFER CUTS WERE MADE. THE CUTS WERE EXCELLENT. NEXT AN INTRAMEDULLARY CUTTING GUIDE WAS PLACED IN THE TIBIA. A TRANS TIBIAL CUT WAS MADE ALONG THE LONG AXIS OF THE TIBIA. APPROXIMATELY 10 MM OF BONE WAS REMOVED FROM THE HIGH SIDE OF THE TIBIA. THE TIBIA WAS THEN PLANED TO A SMOOTH SURFACE. POSTERIOR FEMORAL OSTEOPHYTES WERE REMOVED FROM THE FEMORAL CONDYLES. A 71 TIBIAL TRIAL WAS PLACED IN ALIGNMENT WITH THE 1/3 MEDIAL ASPECT OF THE TIBIAL TUBERCLE. THEN A 62.5 FEMORAL TRIAL COMPONENT WAS PLACED. BOTH HAD EXCELLENT FITS. EVENTUALLY A 10 MM CR POLYETHYLENE TRIAL COMPONENT WAS PLACED. THE KNEE WAS TAKEN THROUGH A RANGE OF MOTION. THE KNEE CAME OUT TO FULL EXTENSION. THERE WAS NO ABNORMAL TILT TO THE PATELLA. THERE WAS GOOD A/P AND VARUS/VALGUS STABILITY. THERE WAS NO EXCESSIVE ROLL BACK WITH FLEXION. THE TRIAL COMPONENTS WERE REMOVED. THEN A 62.5 FEMORAL COMPONENT AND 71 TIBIAL COMPONENT WITH A 10 CR POLYETHYLENE COMPONENT WERE CEMENTED INTO PLACE. ONCE THE CEMENT WAS HARD THE KNEE WAS TAKEN THROUGH A ROM AGAIN AND FOUND TO BE STABLE WITH NO PATELLA TILT NO EXCESSIVE ROLL BACK WITH FLEXION AND GOOD STABILITY WITH COMPLETE AND FULL EXTENSION. THE KNEE WAS IRRIGATED WITH STERILE BETADINE AND WATER FOR ABOUT 3 MINUTES. THE BLEEDERS WERE CAUTERIZED. THE ARTHROTOMY WAS REPAIRED WITH NUMBER 1 VICRYL. THE SUB CUTANEOUS LAYER WITH 2-0 VICRYL AND THE SKIN WITH KEYANNA. THE WOUND WAS WASHED AND A STERILE DRESSING WAS APPLIED. PATIENT WAS EXTUBATED. Estimated Blood Loss 100 Pathology None sent Complications No immediate complications Condition Stable Disposition PACU
[2024-02-13] MEDS: fentaNYL CITRATE INJ (*CRX) 100 MCG/2 ML VIAL 25 MCG IV PUSH ×5 (13:42→14:25)
[2024-02-13] MEDS: IBUPROFEN IV 800 MG/200 ML 800 MG/200 ML BAG 400 MG IVPB (13:47)
--- NOTE | 2024-02-13 15:36 | PC.NURSE ---
This patient, Amanda Darling, was admitted to Medical Room 343-01. Patient/family oriented to hospital policies and general routines including ID bracelet, bed and alarms, visiting hours, pain management, procedures, bathroom and other care routines, personal items, smoking policy, room service/diet, and visiting hours. Information on how to activate the Rapid Response Team has been discussed. Patient/Family are encouraged to report perceived risks to care and to ask questions if they do not understand what they are told or what they should do.
[2024-02-13] MEDS: SENNA/DOCUSATE SODIUM TABLET 2 TAB PO (17:26)
[2024-02-13] MEDS: CELECOXIB 200 MG CAPSULE PO (17:26)
[2024-02-13] MEDS: FAMOTIDINE 20 MG TABLET PO (20:04)
[2024-02-13] MEDS: ASPIRIN 325 MG ENTERIC TABLET PO (20:04)
[2024-02-13] MEDS: oxyCODONE/ACETAMINOPHEN (*CRX) 5-325 MG TABLET 1 TABLET PO (20:06)
[2024-02-14 00:39] VITALS: BP 131/72; PULSE 82; RESP 18; TEMP 36.8; O2SAT 96
[2024-02-14] MEDS: oxyCODONE/ACETAMINOPHEN (*CRX) 5-325 MG TABLET 1 TABLET PO (02:03)
[2024-02-14] MEDS: ceFAZolin 2 GM/D5W 50 ML 2 GM/50 ML BAG IVPB ×2 (02:03→11:48)
[2024-02-14 04:56] VITALS: BP 119/57; PULSE 76; RESP 18; TEMP 36.3; O2SAT 96
[2024-02-14] MEDS: LEVOTHYROXINE SODIUM 100 MCG TABLET BY MOUTH (05:11)
[2024-02-14 05:34] LABS: Basophils Absolute Auto 0.1 K/mm3 (0.0-0.1); Basophils Percent Auto 0.5 % (0.2-1.2); Eosinophils Percent Auto 0.3 % (0-4.4); Hematocrit 33.8 % (37.0-47.0); Hemoglobin 10.6 g/dL (12.0-15.0); Immature Granulocyte Absolute 0.05 K/mm3 (0.00-0.031); Immature Granulocyte Percent A 0.4 % (0-0.5); Lymphocytes Absolute Auto 1.17 K/mm3 (0.9-3.2); Lymphocytes Percent Auto 9.9 % (18.3-44.2); Mean Corpuscular HGB Conc 31.4 g/dl (32-36); Mean Corpuscular Hemoglobin 30.9 pg (26-34); Mean Corpuscular Volume 98.5 fl (80-100); Mean Platelet Volume 9.6 fl (7.4-10.4); Monocytes Absolute Auto 1.4 K/mm3 (0.1-0.6); Monocytes Percent Auto 11.9 % (2.6-8.5); Neutrophils Absolute Auto 9.1 K/mm3 (1.3-6.7); Platelet Count Result 263 k/mm3 (150-375); Red Blood Count 3.43 M/mm3 (4.2-5.4); Red Cell Distribution Width 12.7 % (11.5-14.5); White Blood Count 11.9 K/mm3 (4.5-10.0)
[2024-02-14 05:47] LABS: Anion Gap 1 mmol/L (4-12); Blood Urea Nitrogen 14 mg/dL (7-17); Calcium 8.7 mg/dL (8.4-10.2); Carbon Dioxide 28 mmol/L (22-30); Chloride 107 mmol/L (98-107); Estimated CRCL calculation 40 ml/min; Estimated Glomerular Filt Rate > 60; Glucose 132 mg/dL (65-110); Potassium 4.5 mmol/L (3.4-5.0); Sodium 136 mmol/L (137-145)
[2024-02-14] MEDS: oxyCODONE/ACETAMINOPHEN (*CRX) 10-325 MG TABLET 1 TAB PO ×2 (07:44→13:59)
[2024-02-14 08:39] VITALS: BP 122/62; PULSE 70; RESP 18; TEMP 36.7; O2SAT 95
[2024-02-14 08:58] VITALS: O2SAT 95
[2024-02-14] MEDS: RALOXIFENE HCL (*CHEMO) 60 MG TABLET BY MOUTH (09:19)
[2024-02-14] MEDS: PARoxetine 10 MG TABLET BY MOUTH (09:19)
[2024-02-14] MEDS: CELECOXIB 200 MG CAPSULE PO (09:19)
[2024-02-14] MEDS: SENNA/DOCUSATE SODIUM TABLET 2 TAB PO (09:19)
[2024-02-14] MEDS: ASPIRIN 325 MG ENTERIC TABLET PO (09:19)
[2024-02-14] MEDS: FAMOTIDINE 20 MG TABLET PO (09:19)
--- NOTE | 2024-02-14 09:19 | P.PNAN_ITS ---
Anes - Prog Note Post-Op Date/Time: 02/14/24 09:19 Cardiovascular status: normal Respiratory status: normal Airway patency: baseline Mental status: baseline Post-Op hydration status: normal Vital Signs: Last Vital Signs Temp 36.3 C L 02/14/24 04:56 Pulse 76 02/14/24 04:56 Resp 18 02/14/24 04:56 BP 119/57 L 02/14/24 04:56 Pulse Ox 95 02/14/24 08:58 O2 Del Method Room Air 02/14/24 08:58 O2 Flow Rate 8 02/13/24 14:10 Pain Score (VAS): 0 I/O: Intake & Output 02/13/24 02/14/24 02/14/24 23:59 07:59 15:59 Intake Total 530 400 240 Balance 530 400 240 Laboratory Tests 02/14/24 05:11 02/14/24 05:11 02/14/24 05:11 WBC 11.9 H RBC 3.43 L Hgb 10.6 L Hct 33.8 L MCV 98.5 MCH 30.9 MCHC 31.4 L RDW 12.7 Plt Count 263 MPV 9.6 Immature Gran % (Auto) 0.4 Neut % (Auto) 77.0 H Lymph % (Auto) 9.9 L [place] % (Auto) 11.9 H Eos % (Auto) 0.3 Baso % (Auto) 0.5 Lymph # (Auto) 1.17 [place] # (Auto) 1.4 H Eos # (Auto) 0.0 Baso # (Auto) 0.1 Abs Immat Gran (auto) 0.05 H Absolute Neuts (auto) 9.1 H Absolute Nucleated RBC 0.000 Nucleated RBC % 0.0 Sodium 136 L Potassium 4.5 Chloride 107 Carbon Dioxide 28 Anion Gap 1 L BUN 14 D Creatinine 0.80 Estim Creat Clear Calc 40 Estimated GFR > 60 Glucose 132 H Calcium 8.7 Post-procedural complaints: none Patient Feedback: Patient satisfied with anesthetic care. Other Findings: patient complaining of severe pain. one time dose of dilaudid ordered
[2024-02-14] MEDS: polyethylene glycoL 3350 17 GM POWD.PACK PO (09:20)
--- NOTE | 2024-02-14 12:30 | PM.DS ---
DS: Admitting Diagnosis Discharge Date 02/14/24 Admitting Diagnosis RIGHT KNEE DJD DS: Discharge Diagnosis Discharge Diagnosis (1) S/P total knee arthroplasty: Code(s): Z96.659 - Presence of unspecified artificial knee joint Status: Acute Assessment and Plan: S/P POD 1 RIGHT TKA DOING WELL WITH GOOD PROGRESS WITH PT. OK TO DC HOME F/U IN 3 WEEKS. Plan S/P POD 1 RIGHT TKA DOING WELL WITH GOOD PROGRESS WITH PT. OK TO DC HOME F/U IN 3 WEEKS. DS: Summary Hospital Course Reason for hospitalization: RIGHT TKA Hospital Course: PATIENT WAS ADMITTED S/P TOTAL KNEE ARTHROPLASTY FOR POSTOPERATIVE MEDICAL MANAGEMENT, PAIN CONTROL AND MOBILIZATION WITH PHYSICAL AND OCCUPATIONAL THERAPY. THE PATIENT PROGRESSED WELL WITH PT/OT. LABS AND VITALS REMAINED STABLE AND PAIN WELL CONTROLLED. THE PATIENT HAS BEEN CLEARED TO BE DISCHARGED HOME. FOLLOW UP APPOINTMENT SCHEDULED. DISCHARGE INSTRUCTIONS DISCUSSED AT LENGTH WITH THE PATIENT. MEDICATIONS REVIEWED. Status at Discharge Cognitive/behavioral status at discharge: STABLE Time Spent with Patient Time attestation: Total time spent providing and/or coordinating discharge services: Exam Extrem: Other: VSS AFEBRILE DRESSING DRY NV INTACT NEG HOMANS SIGN CALF AND THIGH NON TENDER DS: Data Data Completed and Pending Labs on day of discharge: Labs from last 24 hours 02/14/24 05:11 WBC 11.9 H RBC 3.43 L Hgb 10.6 L Hct 33.8 L MCV 98.5 MCH 30.9 MCHC 31.4 L RDW 12.7 Plt Count 263 MPV 9.6 Immature Gran % (Auto) 0.4 Neut % (Auto) 77.0 H Lymph % (Auto) 9.9 L Barnwell % (Auto) 11.9 H Eos % (Auto) 0.3 Baso % (Auto) 0.5 Lymph # (Auto) 1.17 Barnwell # (Auto) 1.4 H Eos # (Auto) 0.0 Baso # (Auto) 0.1 Abs Immat Gran (auto) 0.05 H Absolute Neuts (auto) 9.1 H Absolute Nucleated RBC 0.000 Nucleated RBC % 0.0 Sodium 136 L Potassium 4.5 Chloride 107 Carbon Dioxide 28 Anion Gap 1 L BUN 14 D Creatinine 0.80 Estim Creat Clear Calc 40 Estimated GFR > 60 Glucose 132 H Calcium 8.7 Procedures/Treatments: RIGHT TKA Discharge Plan Discharge Patient Disposition: Home Health Service Discharge Instructions: KEE ANTUNEZ M.D. [facility] [address] [place] [address] POST OPERATIVE DISCHARGE INSTRUCTIONS FOLLOWING TOTAL KNEE REPLACEMENT SURGERY ? Your dressing will be changed prior to your discharge. You will be sent home with one additional dressing to be changed on post op day 7 by the home health RN. Your yovani will be removed on the 14th day after surgery and steri-strips will be placed. Please practice good hand hygiene and do not touch your incision in order to prevent infection. ? You may shower with your dressing but do not submerge in a bath tub. ? Do not drive or operate machinery until you are released by Dr. Antunez. ? Do not walk without a walker for any reason until you are released by Dr. Antunez. ? Continue to use your ice machine. Please use a towel or pillow case to protect your skin before applying your ice machine. ? Do NOT place a pillow under your knee. You may use a pillow from the calf down if needed. This will prevent a flexion contracture postoperatively. ? You may begin use of your CPM machine at home if you have been given one pre-operatively. DO NOT USE WHILE YOU ARE SLEEPING. ? Your first post op appointment was sent to you via mail preoperatively. If you have any questions or are unable to make your appointment, please contact our office for scheduling questions. ? Your medications have been sent to your pharmacy. You have been sent home with pain medication. We have also sent you with a stool softener as narcotics can cause constipation. Please keep this in mind during your postoperative recovery. If you are not experiencing regular bowel movements, please contact our office for further instruction. ? Please
== END 2024-02-14 14:30 | disposition home health service (06) ==
LOC: ANHSURGERY 08:45 → ANH3MED 14:57
PROVIDERS: PCP Internal Medicine; Visit Provider Orthopaedic Surgery
PROC: (CPT 27447; principal; 2024-02-13 11:00)
DX: M17.11 Unilateral primary osteoarthritis, right knee (principal); E03.9 Hypothyroidism, unspecified; E55.9 Vitamin D deficiency, unspecified; F41.8 Other specified anxiety disorders; N32.81 Overactive bladder; Z87.891 Personal history of nicotine dependence
CPT/HCPCS: 27447; 36415; 73560; 80048; 80307; 82040; 83036; 85025; 85610; 85730; 86850; 86900; 86901; 87641; 93005; 97110; 97116; 97161; 97165; A9270; C1713; C1776; J0171; J0690; J1100; J1170; J1741; J1885; J2250; J2270; J2405; J2704; J2795; J3010; J7120

== ENCOUNTER 2024-06-10 10:07 | Outpatient (CLI) | payer MEDICARE, SELFPAY ==
[2024-06-10 10:54] LABS: Alanine Aminotransferase 17 U/L (6-35); Albumin Level 4.1 g/dL (3.5-5.1); Alkaline Phosphatase 93 U/L (38-126); Anion Gap 9 mmol/L (4-12); Aspartate Amino Transferase 24 U/L (14-36); Bilirubin,Total 0.3 mg/dL (0.2-1.3); Blood Urea Nitrogen 21 mg/dL (7-17); Calcium 9.2 mg/dL (8.4-10.2); Carbon Dioxide 27 mmol/L (22-30); Chloride 103 mmol/L (98-107); Cholesterol 157 mg/dL (0-200); Estimated Glomerular Filt Rate > 60; Glucose 92 mg/dL (65-110); HDL Direct 70 mg/dL; Potassium 4.5 mmol/L (3.4-5.0); Sodium 139 mmol/L (137-145); Triglycerides 91 mg/dL (<150)
[2024-06-10 11:04] LABS: LDL Cholesterol Direct 66 mg/dL
[2024-06-10 11:07] LABS: Basophils Absolute Auto 0.1 K/mm3 (0.0-0.1); Basophils Percent Auto 0.9 % (0.2-1.2); Eosinophils Absolute Auto 0.2 K/mm3 (0-0.3); Eosinophils Percent Auto 3.1 % (0-4.4); Hematocrit 39.2 % (37.0-47.0); Hemoglobin 12.4 g/dL (12.0-15.0); Immature Granulocyte Absolute 0.03 K/mm3 (0.00-0.031); Immature Granulocyte Percent A 0.4 % (0-0.5); Lymphocytes Absolute Auto 1.55 K/mm3 (0.9-3.2); Lymphocytes Percent Auto 22.7 % (18.3-44.2); Mean Corpuscular HGB Conc 31.6 g/dl (32-36); Mean Corpuscular Hemoglobin 30.8 pg (26-34); Mean Corpuscular Volume 97.5 fl (80-100); Monocytes Absolute Auto 0.7 K/mm3 (0.1-0.6); Monocytes Percent Auto 9.5 % (2.6-8.5); Neutrophils Absolute Auto 4.3 K/mm3 (1.3-6.7); Neutrophils Percent Auto 63.4 % (45.5-73.1); Platelet Count Result 276 k/mm3 (150-375); Red Blood Count 4.02 M/mm3 (4.2-5.4); Red Cell Distribution Width 13.6 % (11.5-14.5); White Blood Count 6.8 K/mm3 (4.5-10.0)
[2024-06-10 11:25] LABS: Free T4 Free Thyroxine 1.47 ng/mL (0.78-2.19); Vitamin D 25 Hydroxy 44.7 ng/mL
== END 2024-06-10 10:08 | disposition home or self-care (01) ==
LOC: ANHLAB 10:11
PROVIDERS: PCP Internal Medicine; Visit Provider Internal Medicine
DX: E55.9 Vitamin D deficiency, unspecified (principal); E03.9 Hypothyroidism, unspecified; E78.2 Mixed hyperlipidemia; Z79.899 Other long term (current) drug therapy
CPT/HCPCS: 36415; 80053; 80061; 82306; 84439; 84443; 85025

== ENCOUNTER 2025-08-05 14:15 | Outpatient (CLI) | payer MEDICARE, SELFPAY ==
[2025-08-05 14:45] LABS: Alanine Aminotransferase 20 U/L (6-35); Albumin Level 4.1 g/dL (3.5-5.1); Alkaline Phosphatase 70 U/L (38-126); Anion Gap 5 mmol/L (4-12); Aspartate Amino Transferase 32 U/L (14-36); Bilirubin,Total 0.7 mg/dL (0.2-1.3); Blood Urea Nitrogen 21 mg/dL (7-17); Calcium 8.8 mg/dL (8.4-10.2); Carbon Dioxide 26 mmol/L (22-30); Chloride 105 mmol/L (98-107); Cholesterol 180 mg/dL (0-200); Estimated Glomerular Filt Rate > 60; Glucose 121 mg/dL (65-110); HDL Direct 72 mg/dL; Potassium 4.4 mmol/L (3.4-5.0); Sodium 136 mmol/L (137-145); Total Protein 7.0 g/dL (6.3-8.2); Triglycerides 89 mg/dL (<150)
[2025-08-05 15:14] LABS: Add Urine Microscopic? YES; Appearance Urine Cloudy (Clear); Glucose Urine UA Negative (Negative); Leukocyte Esterase Ur 3+ LEU/UL (Negative); Nitrate Urine Positive (Negative); Non Pathogenic Casts 0-2; Specific Grav Ur 1.019 (1.001-1.035)
[2025-08-05 15:20] LABS: Thyroid Stimulating Hormone 1.200 uIU/mL (0.465-4.680)
[2025-08-05 16:40] LABS: Free T4 Free Thyroxine 1.70 ng/dL (0.78-2.19)
--- OUTSIDE RECORDS SUMMARY | 2025-08-05 17:52 | XMS_ITS | Clinical Summary ---
Author Organization [facility] Address [address] [place] [address] Care Team Providers Care Generalist Name Role Phone Ulysses Gramajo MD Primary Care Provider [phone] Social History Tobacco Use Types Packs/Day Years Used Date Smoking Tobacco: Never Assessed Comments Unknown Sex and Gender Information Value Date Recorded Sex Assigned at Not on file Legal Sex Female 1:16 PM [facility] Gender Identity Not on file Sexual Orientation Not on file Plan of Treatment Health Maintenance Due Date Last Done Comments DTaP, Tdap and Td Vaccines (1 - Tdap) 1961 Pneumococcal Vaccine: 50+ Years (1 of 1 - PCV) 1992 Annual Medicare Wellness Visit 2007 Dexa Scan (General) 2007 Zoster Vaccines (2 of 3) 09/29/2012 08/04/2012 RSV Immunization or 60+ Years (1 - 1-dose 75+ series) 2017 COVID-19 Vaccine ( season) 2025 08/19/2021, 01/04/2021, 12/03/2020 Influenza Adult (#1) 2025 07/20/2017, 07/15/2016, 07/21/2015, Additional history exists Hepatitis A Vaccines Aged Out No long er eligible based on patient's age to complete this topic Meningococcal B Vaccine Aged Out No l onger eligible based on patient's age to complete this topic Meningococcal Vaccine Aged Out No angela reilly eligible based on patient's age to complete this topic RSV Immunizations Under 20 Months Aged Out No longer eligible based on patient's age to complete this topic Insurance Care Teams Generalist Relationship Specialty Start Date End Date Ulysses Gramajo MD [id number] [facility] [address] [facility] [address] [place] [address] PCP - General INTERNAL MEDICINE 10/18/23
[2025-08-05 18:57] LABS: Hemoglobin A1C 5.5 % (<5.7)
== END 2025-08-05 14:16 | disposition home or self-care (01) ==
LOC: ANHLAB 14:16
PROVIDERS: PCP Internal Medicine; Visit Provider Internal Medicine
DX: E03.9 Hypothyroidism, unspecified (principal); E78.2 Mixed hyperlipidemia; R73.03 Prediabetes; Z79.899 Other long term (current) drug therapy
CPT/HCPCS: 36415; 80053; 80061; 81001; 83036; 84439; 84443; 87077; 87086; 87186